=== PATIENT | female | born 1955 | race Caucasian/White ===

== ENCOUNTER 2020-04-06 16:45 | Inpatient (IN) | payer OTHER ==
[~2020-04-06] VITALS: Ht 154.9 cm; Wt 89.6 kg
[2020-04-06 19:21] LABS: BASOPHIL % 0.8 % (0-2); PLATELET COUNT 184 x10^3mcL (130-400)
[2020-04-06 19:29] LABS: RED CELL DISTRIBUTION WIDTH 17.4 % (11.5-14.5)
[2020-04-06 19:54] LABS: CALCIUM 10.3 mg/dL (8.5-10.1); CARBON DIOXIDE 25.2 mmol/L (21-32); CREATININE SERUM 1.5 mg/dL (0.6-1.0); POTASSIUM SERUM 3.6 mmol/L (3.5-5.1)
[2020-04-06 20:06] LABS: ALBUMIN 4.3 g/dL (3.4-5.0); BILIRUBIN TOTAL 0.55 mg/dL (0.20-1.00); T4(THYROXINE) 11.3 ug/dL (4.7-13.3); TOTAL PROTEIN, SERUM 7.8 g/dL (6.4-8.2)
[2020-04-06 20:06] LABS: microscopic required? NO
[2020-04-06 20:27] LABS: urine erythrocyte NEGATIVE (NEGATIVE)
[2020-04-06 21:37] LABS: AMPHETAMINE QUAL UR NONE DETECTED (See below)
[2020-04-06] MEDS ORDERED: ASPIR 8181 MG PO (23:08)
[2020-04-06] MEDS ORDERED: DILT-XR180 MG PO (23:09)
[2020-04-06] MEDS ORDERED: HORIZANT300 MG PO (23:10)
[2020-04-06] MEDS ORDERED: GLIPIZIDE XL5 M2 PO (23:11)
[2020-04-06] MEDS ORDERED: LASIX20 MG PO (23:12)
[2020-04-06] MEDS ORDERED: CLONIDINE HYDR0.1 M1 PO (23:12)
[2020-04-06] MEDS ORDERED: ZESTRIL20 MG PO (23:12)
[2020-04-06] MEDS ORDERED: TOPROL XL50 MG PO (23:13)
[2020-04-06] MEDS ORDERED: ACETAMINOPHEN500 M5 (23:14)
[2020-04-06] MEDS ORDERED: ZOFRAN8 MG PO (23:14)
[2020-04-06] MEDS ORDERED: BENADRYL ALLERG25 M1 PO (23:16)
[2020-04-06] MEDS ORDERED: MELATONIN10 M6 PO (23:16)
[2020-04-06] MEDS ORDERED: ZANAFLEX CAPSULE4 MG PO (23:17)
[2020-04-06] MEDS ORDERED: OSTERA TABLET1 EACH (23:18)
[2020-04-06] MEDS ORDERED: PHENERGAN25 M3 PR (23:19)
[2020-04-06] MEDS ORDERED: COLACE100 MG PO (23:20)
[2020-04-06] MEDS ORDERED: CIPRO500 MG PO (23:20)
[2020-04-06] MEDS ORDERED: NORCO1 TA2 PO (23:21)
[2020-04-06 23:53] VITALS: BP 197/105
[2020-04-07 00:10] VITALS: BP 199/96
[2020-04-07 00:22] VITALS: Ht 154.9 cm; Wt 89.6 kg
[2020-04-07 04:31] VITALS: BP 138/72
[2020-04-07 07:05] LABS: CARBON DIOXIDE 23.3 mmol/L (21-32); CREATININE SERUM 1.3 mg/dL (0.6-1.0); MAGNESIUM 1.5 mg/dL (1.8-2.4); PHOSPHOROUS 3.5 mg/dL (2.5-4.9); POTASSIUM SERUM 3.4 mmol/L (3.5-5.1)
[2020-04-07 07:12] LABS: BASOPHIL % 0.5 % (0-2); PLATELET COUNT 156 x10^3mcL (130-400)
[2020-04-07 07:24] LABS: RED CELL DISTRIBUTION WIDTH 17.3 % (11.5-14.5)
[2020-04-07 07:32] VITALS: BP 143/77
[2020-04-07 11:48] VITALS: BP 142/74
[2020-04-07 16:25] VITALS: BP 144/83
[2020-04-07 20:57] VITALS: BP 128/83
[2020-04-08 05:55] VITALS: BP 149/93
[2020-04-08 06:52] LABS: BASOPHIL % 0.6 % (0-2); PLATELET COUNT 189 x10^3mcL (130-400)
[2020-04-08 07:00] LABS: RED CELL DISTRIBUTION WIDTH 17.3 % (11.5-14.5)
[2020-04-08 07:19] LABS: CALCIUM 9.4 mg/dL (8.5-10.1); CARBON DIOXIDE 24.8 mmol/L (21-32); CREATININE SERUM 1.1 mg/dL (0.6-1.0); MAGNESIUM 1.8 mg/dL (1.8-2.4); PHOSPHOROUS 3.7 mg/dL (2.5-4.9); POTASSIUM SERUM 3.8 mmol/L (3.5-5.1)
[2020-04-08 07:52] VITALS: BP 141/87
[2020-04-08 11:29] VITALS: BP 112/59
[2020-04-08 16:03] VITALS: BP 115/74
[2020-04-08 21:00] VITALS: BP 136/54
[2020-04-09 05:55] VITALS: BP 129/81
[2020-04-09 06:38] LABS: BASOPHIL % 0.7 % (0-2); PLATELET COUNT 195 x10^3mcL (130-400)
[2020-04-09 06:56] LABS: RED CELL DISTRIBUTION WIDTH 18.1 % (11.5-14.5)
[2020-04-09 07:28] LABS: CALCIUM 9.6 mg/dL (8.5-10.1); CARBON DIOXIDE 25.4 mmol/L (21-32); CREATININE SERUM 1.2 mg/dL (0.6-1.0); MAGNESIUM 1.7 mg/dL (1.8-2.4); PHOSPHOROUS 3.7 mg/dL (2.5-4.9); POTASSIUM SERUM 3.9 mmol/L (3.5-5.1)
[2020-04-09 08:17] VITALS: BP 110/58
[2020-04-09 12:15] VITALS: BP 101/58
[2020-04-09 16:36] VITALS: BP 110/62
[2020-04-09 20:44] VITALS: BP 125/70
[2020-04-10 06:08] VITALS: BP 98/63
[2020-04-10 06:44] LABS: BASOPHIL % 0.6 % (0-2); PLATELET COUNT 214 x10^3mcL (130-400)
[2020-04-10 07:01] LABS: CALCIUM 9.5 mg/dL (8.5-10.1); CARBON DIOXIDE 22.7 mmol/L (21-32); CREATININE SERUM 1.4 mg/dL (0.6-1.0); POTASSIUM SERUM 3.6 mmol/L (3.5-5.1)
[2020-04-10 07:02] LABS: RED CELL DISTRIBUTION WIDTH 17.8 % (11.5-14.5)
[2020-04-10 07:49] VITALS: BP 121/59
[2020-04-10 11:31] VITALS: BP 107/60
[2020-04-10 16:16] VITALS: BP 106/62
[2020-04-10 21:05] VITALS: BP 115/53
[2020-04-11 05:50] VITALS: BP 112/69
[2020-04-11 09:08] VITALS: BP 117/45
[2020-04-11 10:30] VITALS: BP 117/45
== END 2020-04-11 13:36 | disposition home health service (06) | DRG 465 ==
LOC: ED 16:45 → MU 22:28 → DU 04-08 05:36 → MU 04-09 10:51
PROVIDERS: Emergency Medicine; ADMIT Internal Medicine
DX: N20.0 Calculus of kidney (principal); E11.22 Type 2 diabetes mellitus with diabetic chronic kidney disease; E11.40 Type 2 diabetes mellitus with diabetic neuropathy, unspecified; I12.9 Hypertensive chronic kidney disease with stage 1 through stage 4 chronic kidney disease, or unspecified chronic kidney disease; N18.3 Chronic kidney disease, stage 3 (moderate); E66.9 Obesity, unspecified; Z68.37 Body mass index [BMI] 37.0-37.9, adult; Z71.3 Dietary counseling and surveillance; Z79.899 Other long term (current) drug therapy; Z88.2 Allergy status to sulfonamides; Z79.82 Long term (current) use of aspirin; Z88.8 Allergy status to other drugs, medicaments and biological substances; E66.01 Morbid (severe) obesity due to excess calories; E11.65 Type 2 diabetes mellitus with hyperglycemia
CPT/HCPCS: 82962; 97112-GP; 97116-GP; G0378; J0360; J1815; J1956; J2270; J2405; J7030; J7050; Q0092; Q0163